=== PATIENT | male | born 1970 | race Caucasian/White ===

== ENCOUNTER 2018-01-30 13:46 | Emergency (ER) | payer OTHER ==
[~2018-01-30 13:46] MED LIST: ATRITAB PO; CLEO300C2 PO; CLIN1CAP6 PO; HYDR10TA16 PO; METH750T2 PO; OMEG1CAP53 PO; PIOG30 PO; TRIL45CA PO; ZOLP10TA3
[2018-01-30 14:06] VITALS: BP 138/79; PULSE 79; RESP 20; TEMP 98.5; O2SAT 98
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
[2018-01-30 15:22] LABS: AUTOMATED NEUTROPHIL # 4.2 TH/MM3 (1.8-7.7); BASOPHIL % 0.6 % (0.0-2.0); EOSINOPHIL % 0.8 % (0.0-4.0); HEMATOCRIT 47.1 % (39.0-51.0); LYMPH % 25.8 % (9.0-44.0); LYMPHOCYTE # 1.6 TH/MM3 (1.0-4.8); MEAN CORPUSCULAR HEMOGLOBIN 31.5 PG (27.0-34.0); MEAN CORPUSCULAR HGB CONC 33.9 % (32.0-36.0); MEAN PLATELET VOLUME 7.5 FL (7.0-11.0); MONO % 7.4 % (0.0-8.0); MONOCYTE # 0.5 TH/MM3 (0-0.9); NEUT % 65.4 % (16.0-70.0); PLATELET COUNT 258 TH/MM3 (150-450); RED BLOOD COUNT 5.06 MIL/MM3 (4.50-5.90); RED CELL DISTRIBUTION WIDTH 13.2 % (11.6-17.2); WHITE BLOOD COUNT 6.4 TH/MM3 (4.0-11.0)
[2018-01-30 15:43] LABS: ALBUMIN 3.9 GM/DL (3.4-5.0); ALT (GPT) 63 U/L (12-78); AST (GOT) 48 U/L (15-37); BICARBONATE 25.8 MEQ/L (21.0-32.0); BLOOD UREA NITROGEN 18 MG/DL (7-18); CALCIUM 9.3 MG/DL (8.5-10.1); CHLORIDE 107 MEQ/L (98-107); CREATININE 1.02 MG/DL (0.60-1.30); GLOMERULAR FILTRATION RATE 78 ML/MIN (>89); GLUCOSE,RANDOM 89 MG/DL (74-106); SODIUM (NA) 139 MEQ/L (136-145)
[2018-01-30 15:52] LABS: ALKALINE PHOSPHATASE 45 U/L (45-117); TOTAL BILIRUBIN ADULT 0.5 MG/DL (0.2-1.0); TOTAL PROTEIN 7.2 GM/DL (6.4-8.2)
[2018-01-30] MEDS ORDERED: PIOG45TA5 PO (17:44)
[2018-01-30] MEDS ORDERED: EMTR1TAB2 PO (17:44)
[2018-01-30] MEDS ORDERED: ASPI-516 CHEW (17:44)
[2018-01-30] MEDS ORDERED: VALA1TAB PO (17:44)
[2018-01-30] MEDS ORDERED: ATOR10TA15 PO (17:44)
[2018-01-30] MEDS ORDERED: DULO1CAP3 PO (17:44)
[2018-01-30] MEDS ORDERED: TRAD5TAB PO (17:44)
[2018-01-30] MEDS ORDERED: ACAR25TA PO (17:44)
[2018-01-30] MEDS ORDERED: FENO145T2 PO (17:44)
[2018-01-30] MEDS ORDERED: ENAL5TAB PO (17:44)
[2018-01-30] MEDS ORDERED: ZOLP10TA3 PO (17:44)
[2018-01-30] MEDS ORDERED: [UNRECOGNIZED DRUG - REMARK] PO (17:44)
--- NOTE | 2018-01-30 18:49 | PD ---
Data Data Last Documented VS Vital Signs Date Time Temp Pulse Resp B/P (MAP) Pulse Ox O2 Delivery O2 Flow Rate FiO2 01/30/18 14:06 98.5 79 20 138/79 (98) 98 Orders Orders Complete Blood Count With Diff (01/30/18 14:22) Comprehensive Metabolic Panel (01/30/18 14:22) Thyroid Stimulating Hormone (01/30/18 14:22) Psych Screen (01/30/18 14:22) Drug Screen, Random Urine (01/30/18 14:22) Alcohol (Ethanol) (01/30/18 14:22) Ed Discharge Order (01/30/18 18:49) Labs Laboratory Tests Test 01/30/18 10:30 01/30/18 15:00 Urine Opiates Screen NEG Urine Barbiturates Screen NEG Urine Amphetamines Screen NEG Urine Benzodiazepines Screen NEG Urine Cocaine Screen NEG Urine Cannabinoids Screen POS White Blood Count 6.4 TH/MM3 Red Blood Count 5.06 MIL/MM3 Hemoglobin 16.0 GM/DL Hematocrit 47.1 % Mean Corpuscular Volume 93.0 FL Mean Corpuscular Hemoglobin 31.5 PG Mean Corpuscular Hemoglobin Concent 33.9 % Red Cell Distribution Width 13.2 % Platelet Count 258 TH/MM3 Mean Platelet Volume 7.5 FL Neutrophils (%) (Auto) 65.4 % Lymphocytes (%) (Auto) 25.8 % Monocytes (%) (Auto) 7.4 % Eosinophils (%) (Auto) 0.8 % Basophils (%) (Auto) 0.6 % Neutrophils # (Auto) 4.2 TH/MM3 Lymphocytes # (Auto) 1.6 TH/MM3 Monocytes # (Auto) 0.5 TH/MM3 Eosinophils # (Auto) 0.0 TH/MM3 Basophils # (Auto) 0.0 TH/MM3 CBC Comment DIFF FINAL Differential Comment Blood Urea Nitrogen 18 MG/DL Creatinine 1.02 MG/DL Random Glucose 89 MG/DL Total Protein 7.2 GM/DL Albumin 3.9 GM/DL Calcium Level 9.3 MG/DL Alkaline Phosphatase 45 U/L Aspartate Amino Transf (AST/SGOT) 48 U/L Alanine Aminotransferase (ALT/SGPT) 63 U/L Total Bilirubin 0.5 MG/DL Sodium Level 139 MEQ/L Potassium Level 4.3 MEQ/L Chloride Level 107 MEQ/L Carbon Dioxide Level 25.8 MEQ/L Anion Gap 6 MEQ/L Estimat Glomerular Filtration Rate 78 ML/MIN Thyroid Stimulating Hormone 3rd Gen 0.412 uIU/ML Ethyl Alcohol Level LESS THAN 3 MG/DL MDM Supervised Visit with JAY JAY: No Narrative Course Head 1850 patient approach nursing this stating that he wanted to leave prior to seeing psychiatry, I have interviewed him briefly he states he is not suicidal or homicidal. He is aggravated because he has been here for 5 hours, he states he is going to call the administration. He is irate but is easily aroused, he denies suicidal or homicidal intent. He is reluctant to provide much history to me but at this time I do not appreciate him to be greatly disabled or a threat to himself or others. At this time he does not meet criteria for involuntary hold. I released him into his own recognizance. Diagnosis Primary Impression: Adjustment disorder Additional Impression: Medical clearance for psychiatric admission Referrals: [facility] Disposition: 01 DISCHARGE HOME Condition: Stable Inocencio Juarez MD Jan 30, 2018 18:49
== END 2018-01-30 18:59 | disposition home or self-care (01) ==
LOC: NEPD 13:46
DX: F43.20 Adjustment disorder, unspecified (principal); F12.10 Cannabis abuse, uncomplicated; F43.10 Post-traumatic stress disorder, unspecified; E78.00 Pure hypercholesterolemia, unspecified; E11.9 Type 2 diabetes mellitus without complications; F17.200 Nicotine dependence, unspecified, uncomplicated; Z21 Asymptomatic human immunodeficiency virus [HIV] infection status; Z79.899 Other long term (current) drug therapy
CPT/HCPCS: 80053; 80307; 84443; 85025; 99283

== ENCOUNTER 2018-02-10 20:57 | Emergency (ER) | payer OTHER ==
[~2018-02-10] VITALS: Ht 167.6 cm; Wt 65.0 kg
[~2018-02-10 20:57] MED LIST changes: +ACAR25TA PO; +ASPI-516 CHEW; +ATOR10TA15 PO; -ATRITAB PO; -CLEO300C2 PO; -CLIN1CAP6 PO; +DULO1CAP3 PO; +EMTR1TAB2 PO; +ENAL5TAB PO; +FENO145T2 PO; -HYDR10TA16 PO; -METH750T2 PO; -OMEG1CAP53 PO; -PIOG30 PO; +PIOG45TA5 PO; +TRAD5TAB PO; -TRIL45CA PO; +VALA1TAB PO; -ZOLP10TA3; +ZOLP10TA3 PO; +[UNRECOGNIZED DRUG - REMARK] PO
[2018-02-10 21:05] VITALS: BP 206/95; PULSE 105; RESP 12; TEMP 98.5; O2SAT 96
--- NOTE | 2018-02-10 21:19 | PD ---
HPI Chief Complaint: ba Time Seen by Provider: 21:02 Travel History International Travel<30 days: No Contact w/Intl Traveler<30days: No Traveled to known affect area: No History of Present Illness HPI 47-year-old male presents under a [place] act initiated by the Police Department. According to his paperwork the patient's called the police saying that the patient was having a "mental breakdown" and had thrown his food all over the kitchen counter and left the house with their dogs. His behavior was reportedly very erratic. Reportedly he has a history of PTSD. The patient is currently acting somewhat hostile towards the motorcycle police officer that placed him under [place] act. He threatens to call the [facility] of this hospital in order to report the officer. He feels that the entire incident at home was overblown. He reports that he had a "conversation" with his significant other and then left the home. When he returned the police were there and placed under [place] act. He denies any suicidal or homicidal ideation. He endorses marijuana use but denies any other drug use. He reports that today he had his first appointment with a new psychologist who told him that he "may have PTSD." It appears that the patient was seen here on January 30 for psychiatric evaluation but left prior to seeing psychiatry. According to notes from that visit he has a history of HIV. Denies any medical complaints at this time. PFSH Past Medical History Autoimmune Disease: Yes (HIV) Cancer: No High Cholesterol: Yes Diabetes: Yes Diminished Hearing: No Hepatitis: No Hiatal Hernia: No Thyroid Disease: No PNEUMOCCOCAL Vaccine (Year): 1 Past Surgical History Abdominal Surgery: Yes (APPENDECTOMY) Appendectomy: Yes Pacemaker: No Other Surgery: Yes Social History Alcohol Use: No Tobacco Use: Yes (1/2 PPD) Substance Use: No Allergies-Medications (Allergen,Severity, Reaction): Coded Allergies: No Known Allergies (Verified Adverse Reaction, Unknown, 01/30/18) Reported Meds & Prescriptions Reported Meds & Active Scripts Active Reported Valacyclovir (Valacyclovir HCl) 1,000 Mg Tab 1,000 Mg PO DAILY Tradjenta (Linagliptin) 5 Mg Tab 5 Mg PO DAILY Pioglitazone (Pioglitazone HCl) 45 Mg Tab 45 Mg PO DAILY Odefsey (Wrhlovfsbhgfv-Jhrquwglheg-Cqevxwagu Alafenam) 200-200-25 Mg Tab 1 Tab PO DAILY Fenofibrate 145 Mg Tab 145 Mg PO DAILY Enalapril (Enalapril Maleate) 5 Mg Tab 5 Mg PO DAILY [aptalis/yvonne] 1 Tab PO DIRECTED take with meals and snacks Zolpidem (Zolpidem Tartrate) 10 Mg Tab 10 Mg PO HS PRN Aspirin 81 Mg Chew 81 Mg CHEW DIRECTED m, w, f Atorvastatin (Atorvastatin Calcium) 10 Mg Tab 5 Mg PO DIRECTED Duloxetine DR (Duloxetine HCl) 60 Mg Capdr 120 Mg PO HS Acarbose 25 Mg Tab 25 Mg PO BID Take with first bite of meal. Review of Systems Except as stated in HPI: all other systems reviewed are Neg Physical Exam Narrative GENERAL: This is a well-developed well-nourished male who is agitated on initial examination. SKIN: Warm and dry. HEAD: Atraumatic. Normocephalic. EYES: Pupils equal and round. No scleral icterus. No injection or drainage. ENT: No nasal bleeding or discharge. Mucous membranes pink and moist. NECK: Trachea midline. No JVD. CARDIOVASCULAR: Regular rate and rhythm. No murmur appreciated. RESPIRATORY: No accessory muscle use. Clear to auscultation. Breath sounds equal bilaterally. GASTROINTESTINAL: Abdomen soft, non-tender, nondistended. Hepatic and splenic margins not palpable. MUSCULOSKELETAL: No obvious deformities. No clubbing. No cyanosis. No edema. NEUROLOGICAL: Awake and alert. No obvious cranial nerve deficits. Motor grossly within normal limits. Normal speech. Data Data Last Documented VS Vital Signs Date Time Temp Pulse Resp B/P (MAP) Pulse Ox O2 Delivery O2 Flow Rate FiO2 02/10/18 21:05 98.5 105 12 206/95 (132) 96 Orders Orders Psych Screen (02/10/18 21:09) Drug Screen, Random Urine (02/10/18 21:29) Alcohol (Ethanol) (02/10/18 21:29) Labs Laboratory Tests Test 02/10/18 21:23 Urine Opiates Screen NEG Urine Barbiturates Screen NEG Urine Amphetamines Screen POS Urine Benzodiazepines Screen NEG Urine Cocaine Screen POS Urine Cannabinoids Screen POS Ethyl Alcohol Level LESS THAN 3 MG/DL MDM Medical Decision Making Medical Screen Exam Complete: Yes Emergency Medical Condition: Yes Medical Record Reviewed: Yes Differential Diagnosis Adjustment reaction, acute psychosis, substance-induced mood disorder, major depressive disorder, depressive disorder not otherwise specified, PTSD Narrative Course 47-year-old male presents under [place] act for psychiatric evaluation. Mental health screening discussed with the patient. Psychiatric screen ordered. I reviewed his records. He had lab work performed on January 30. His CBC was unremarkable. His CMP was unremarkable. His TSH was within normal limits. These will not be repeated today. A drug screen and alcohol level have been ordered. The patient is medically cleared for psychiatric disposition. Drug screen is positive for amphetamines, cocaine and cannabinoids. The substances are certainly exacerbating his underlying psychiatric illness. Diagnosis Primary Impression: Medical clearance for psychiatric admission Additional Impression: Polysubstance abuse Jaquan Cantrell February 10, 2018 21:19
[2018-02-10] MEDS ORDERED: VITA100052 PO (22:44)
[2018-02-10] MEDS ORDERED: VITA1000 PO (22:44)
[2018-02-11 00:40] VITALS: BP 135/71; PULSE 90; RESP 17; O2SAT 98
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
[2018-02-11 15:08] VITALS: BP 123/83; PULSE 73; RESP 16; TEMP 98.3; O2SAT 96
--- NOTE | 2018-02-11 15:08 | PD ---
Physical Exam Time Seen by Provider: 15:07 Narrative HIRAM Pereira has evaluated patient, lifted Fontenot act and cleared patient for discharge. Data Data Last Documented VS Vital Signs Date Time Temp Pulse Resp B/P (MAP) Pulse Ox O2 Delivery O2 Flow Rate FiO2 02/11/18 00:40 90 17 135/71 (92) 98 Room Air 02/10/18 21:05 98.5 Orders Orders Psych Screen (02/10/18 21:09) Drug Screen, Random Urine (02/10/18 21:29) Alcohol (Ethanol) (02/10/18 21:29) Diet Regular Basic (02/11/18 Breakfast) Diet Regular Basic (02/11/18 Lunch) Diet Regular Basic (02/11/18 Dinner) Labs Laboratory Tests Test 02/10/18 21:23 Urine Opiates Screen NEG Urine Barbiturates Screen NEG Urine Amphetamines Screen POS Urine Benzodiazepines Screen NEG Urine Cocaine Screen POS Urine Cannabinoids Screen POS Ethyl Alcohol Level LESS THAN 3 MG/DL MDM Supervised Visit with JAY JAY: No Narrative Course HIRAM Pereira has evaluated patient, lifted Fontenot act and cleared patient for discharge. Patient contracts safety. Denies suicidal or homicidal ideations. Patient will be provided community resource packet to [facility] for follow-up. Has friends and family for support. Patient was medically cleared by alternate provider prior to psych screening. Patient has been evaluated by psychiatry and and is now cleared for discharge. Diagnosis Primary Impression: Polysubstance abuse Referrals: [facility] (Out patient) [facility] Primary Care Physician Psychiatrist Sheyla STEVEN [facility] Patient Instructions: General Instructions, Polysubstance Abuse (ED) Additional Instruction: Contract safety to your self and others Follow-up with psychiatry Follow-up with primary care provider Follow-up with Santana Alvarado Return to the emergency department immediately with worsening of symptoms Med/Other Pt SpecificInfo: No Change to Meds, No Meds Exist/No RX given Disposition: 01 DISCHARGE HOME Condition: Stable Iris Sanches February 11, 2018 15:08
== END 2018-02-11 15:30 | disposition home or self-care (01) ==
LOC: NEDAMB 20:57 → NEPJ 02-11 15:30
DX: F19.14 Other psychoactive substance abuse with psychoactive substance-induced mood disorder (principal); F12.90 Cannabis use, unspecified, uncomplicated; F14.90 Cocaine use, unspecified, uncomplicated; F15.90 Other stimulant use, unspecified, uncomplicated; F43.10 Post-traumatic stress disorder, unspecified; E78.00 Pure hypercholesterolemia, unspecified; E11.9 Type 2 diabetes mellitus without complications; F17.210 Nicotine dependence, cigarettes, uncomplicated; Z21 Asymptomatic human immunodeficiency virus [HIV] infection status; Z79.899 Other long term (current) drug therapy
CPT/HCPCS: 80307; 99283